=== PATIENT | female | born 1995 | race African-American/Black ===

== ENCOUNTER 2022-01-25 01:28 | Emergency (ER) | payer OTHER, MEDICAID ==
[~2022-01-25] VITALS: Ht 175.3 cm; Wt 62.9 kg
[2022-01-25 02:25] VITALS: BP 94/56
[2022-01-25] MEDS ORDERED: LIDO1ADH23 TP (16:10)
[2022-01-25] MEDS ORDERED: ACET-2708 MT (16:10)
== END 2022-01-25 05:26 | disposition left against medical advice (07) ==
LOC: ER 01:28
DX: Z53.21 Procedure and treatment not carried out due to patient leaving prior to being seen by health care provider (principal)
CPT/HCPCS: 81025

== ENCOUNTER 2022-01-25 12:33 | Emergency (ER) | payer OTHER, MEDICAID ==
[~2022-01-25] VITALS: Ht 167.6 cm; Wt 70.0 kg
[2022-01-25 12:44] VITALS: BP 113/72
[2022-01-25] MEDS ORDERED: METHOCARBAMOL 500MG TABLET PO ONE (14:15)
[2022-01-25] MEDS ORDERED: KETOROLAC 60MG/2ML VIAL IM ONE (14:15)
[2022-01-25] MEDS ORDERED: ACETAMINOPHEN 325MG TABLET PO PRN (14:45)
[2022-01-25 15:15] LABS: BASOPHILS % 0.4 % (0.0-2.0); EOSINOPHILS % 3.1 % (0.0-5.0); HEMATOCRIT. 37.7 % (36.0-48.0); HEMOGLOBIN. 12.5 g/dL (12.0-16.0); LYMPHOCYTES % 30.2 % (20.0-50.0); MEAN CORPUSCULAR HEMOGLOBIN 29.9 pg (28.0-32.0); MEAN CORPUSCULAR VOLUME 90.1 fL (81.0-99.0); MEAN PLATELET VOLUME 10.4 fl (7.4-10.4); MONOCYTES % 8.4 % (2.0-8.0); NEUTROPHILS % 57.9 % (40.0-76.0); PLATELET 173 x1000/uL (130-400); RED BLOOD CELL COUNT 4.18 mill/uL (4.2-5.4); RED CELL DISTRIBUTION WIDTH 13.7 % (11.6-14.6)
[2022-01-25 15:31] LABS: CHLORIDE 105 mEq/L (98-107)
[2022-01-25 15:42] LABS: B-HCG QUANTITATIVE 215 mIU/mL (<3)
[2022-01-25] MEDS ORDERED: LIDO1ADH23 TP (16:10)
[2022-01-25] MEDS ORDERED: ACET-2708 MT (16:10)
[2022-01-25 16:56] LABS: CLARITY URINE CLEAR (CLEAR); COLOR URINE YELLOW (YELLOW); KETONES URINE TRACE (NEGATIVE); LEUKOCYTE ESTERASE URINE NEGATIVE (NEGATIVE); NITRITE URINE NEGATIVE (NEGATIVE); OCCULT BLOOD URINE NEGATIVE (NEGATIVE); PH URINE 6.5 (4.5-8.0); PROTEIN URINE NEGATIVE (NEGATIVE); SPECIFIC GRAVITY URINE 1.025 (1.005-1.030)
== END 2022-01-25 17:19 | disposition home or self-care (01) ==
LOC: ER 12:33
DX: O26.891 Other specified pregnancy related conditions, first trimester (principal); S16.1XXA Strain of muscle, fascia and tendon at neck level, initial encounter; M54.50 Low back pain, unspecified; Z3A.01 Less than 8 weeks gestation of pregnancy; V43.52XA Car driver injured in collision with other type car in traffic accident, initial encounter; Y93.89 Activity, other specified; Y92.488 Other paved roadways as the place of occurrence of the external cause
CPT/HCPCS: 36415; 76830; 76856; 80053; 81003; 81025; 84702; 85025; 99284

== ENCOUNTER 2022-01-28 13:43 | Emergency (ER) | payer OTHER, MEDICAID ==
[~2022-01-28] VITALS: Ht 172.7 cm; Wt 63.0 kg
[~2022-01-28 13:43] MED LIST: ACET-2708 MT; LIDO1ADH23 TP
[2022-01-28 13:44] VITALS: BP 118/65
== END 2022-01-28 16:51 | disposition left against medical advice (07) ==
LOC: ER 13:43
DX: O03.9 Complete or unspecified spontaneous abortion without complication (principal)
CPT/HCPCS: 36415; 76801; 84702; 99284

== ENCOUNTER 2022-06-08 21:22 | Emergency (ER) | payer OTHER, MEDICAID ==
[~2022-06-08] VITALS: Ht 175.3 cm; Wt 68.9 kg
[2022-06-08] MEDS ORDERED: KETOROLAC 30MG/ML VIAL IM ONE (23:00)
[2022-06-08 23:35] LABS: CHLORIDE 104 mEq/L (98-107)
[2022-06-08 23:39] LABS: BASOPHILS % 0.6 % (0.0-2.0); HEMATOCRIT. 37.2 % (36.0-48.0); HEMOGLOBIN. 12.4 g/dL (12.0-16.0); LYMPHOCYTES % 35.4 % (20.0-50.0); MEAN CORPUSCULAR HEMOGLOBIN 28.8 pg (28.0-32.0); MEAN CORPUSCULAR VOLUME 86.8 fL (81.0-99.0); MONOCYTES % 11.1 % (2.0-8.0); NEUTROPHILS % 48.9 % (40.0-76.0); PLATELET 187 x1000/uL (130-400); RED BLOOD CELL COUNT 4.29 mill/uL (4.2-5.4); RED CELL DISTRIBUTION WIDTH 14.2 % (11.6-14.6)
[2022-06-08 23:47] LABS: B-HCG QUANTITATIVE < 1 mIU/mL (<3)
[2022-06-09] MEDS: KETOROLAC 30MG/ML VIAL IM NR ×2 (01:05→03:45)
[2022-06-09 03:45] VITALS: BP 130/72
[2022-06-09] MEDS ORDERED: DOXYCYCLINE HYCLATE 100MG CAPSULE ONE (03:49)
[2022-06-09] MEDS ORDERED: CEFTRIAXONE SODIUM 500 MG/VIAL ONE (03:49)
[2022-06-09] MEDS ORDERED: DOXY100T2 MT (05:50)
[2022-06-09] MEDS ORDERED: METR-167 MT (05:50)
[2022-06-12 04:07] LABS: NEISSERIA GONORRHOEAE NAA Negative (Negative)
== END 2022-06-09 04:15 | disposition home or self-care (01) ==
LOC: ER 21:22
DX: N83.12 Corpus luteum cyst of left ovary (principal); N73.9 Female pelvic inflammatory disease, unspecified; A74.9 Chlamydial infection, unspecified; A54.9 Gonococcal infection, unspecified
CPT/HCPCS: 36415; 74176; 76830; 76856; 80053; 83690; 84702; 85025; 87210; 87491; 87591; 96372; 99285; J0696; J1885; Z7610